=== PATIENT | female | born 1975 | race Caucasian/White ===

== ENCOUNTER 2020-12-06 07:19 | Outpatient (CLI) | payer OTHER, BC, SELFPAY ==
--- NOTE | ~2020-12-06 | MM_ITS ---
EXAMINATION: MM screening tiffany BI w denny HISTORY: Screening mammogram TECHNIQUE: Craniocaudal and mediolateral oblique 3-D tomosynthesis images were obtained and synthetic 2-D images were generated. Bilateral rotated lateral cc views. ..........CAD analysis was submitted and interpreted. COMPARISON: 07/11/2019, 03/15/2018 bilateral digital screening mammogram examinations 02/04/2015 diagnostic left digital mammogram 01/02/2015 bilateral diagnostic mammography and complete bilateral breast ultrasound 12/26/2014 bilateral digital screening mammogram BREAST PARENCHYMAL COMPOSITION: There are scattered areas of fibroglandular density. FINDINGS: History of bilateral prior benign breast biopsies. Possible new approximately 7-8 mm mass in central right breast (MLO Tomosynthesis image 37/83. 11.4 mm partially circumscribed mass with adjacent biopsy marker is noted upper outer left breast (ML O Tomosynthesis image 19/85). Possible partially circumscribed 5 mm mass posteriorly in the lower outer left breast (MLO Tomosynthe sis image 17/85). Bilateral diagnostic mammography and breast ultrasound examination are recommended. IMPRESSION: 1. Bilateral breast masses 2. Bilateral diagnostic mammography and bilateral breast ultrasound examination are recommended. BI-RADS Category 0: Incomplete: Needs additional imaging evaluation. Reviewed, dictated and finalized at location A.
== END 2020-12-06 07:20 | disposition home or self-care (01) ==
LOC: ANHIMG 07:23
PROVIDERS: PCP Emergency Medicine; Visit Provider Obstetrics & Gynecology
DX: Z12.31 Encounter for screening mammogram for malignant neoplasm of breast (principal); R92.8 Other abnormal and inconclusive findings on diagnostic imaging of breast
CPT/HCPCS: 77063; 77067

== ENCOUNTER 2020-12-30 12:13 | Outpatient (CLI) | payer OTHER, BC, SELFPAY ==
--- NOTE | ~2020-12-30 | MMUS_ITS ---
EXAMINATION: MM diagnostic mammo BI, US breast BI limited HISTORY: Bilateral breast masses on screening mammogram TECHNIQUE: Additional 3-D tomosynthesis images of the breasts were performed and synthetic 2-D images were generated. CAD analysis was submitted and interpreted. High resolution limited bilateral breast ultrasound was performed. COMPARISON: 12/06/2020, 07/11/2019, 03/15/2018, 02/04/2015, 01/02/2015 BREAST PARENCHYMAL COMPOSITION: There are scattered areas of fibroglandular density. FINDINGS: MAMMOGRAPHIC FINDINGS: Left breast: There is a stable mass with biopsy change in the posterior third of the breasts at the 3 :00 location 6 cm from the nipple. There is a 5 mm oval, obscured, low density mass in the middle thi rd of the lower breast 6 cm from the nipple. Right breast: An asymmetry is present in the middle third of the slightly inner breast at the 3:00 lo cation 4 cm from the nipple on the craniocaudal view. ULTRASOUND: Left breast: There is an 11 mm x 6 mm oval, circumscribed, parallel, hypoechoic mass at the 3:00 loca tion 4 cm from the nipple which previously measured up to 1.5 cm and has undergone biopsy. No definit e sonographic correlate is identified for the low density mass seen in the middle third of the breast s. Right breast: There is a 4 mm round, circumscribed, anechoic mass with no posterior features or inter nal vascularity projecting behind the nipple. IMPRESSION: 1. Probably benign bilateral breast masses. 2. Recommend 6 month follow-up bilateral diagnostic mammogram and ultrasound. BI-RADS category 3, probably benign findings. Reviewed, dictated and finalized at location A. IMPRESSION: 1. Probably benign bilateral breast masses. 2. Recommend 6 month follow-up bilateral diagnostic mammogram and ultrasound. BI-RADS category 3, probably benign findings.
== END 2020-12-30 12:14 | disposition home or self-care (01) ==
LOC: ANHIMG 12:14
PROVIDERS: PCP Emergency Medicine; Visit Provider Obstetrics & Gynecology
DX: N63.23 Unspecified lump in the left breast, lower outer quadrant (principal); N63.14 Unspecified lump in the right breast, lower inner quadrant
CPT/HCPCS: 76642; 77066

== ENCOUNTER 2021-08-11 11:13 | Outpatient (CLI) | payer OTHER, BC, SELFPAY ==
--- NOTE | ~2021-08-11 | MMUS_ITS ---
EXAMINATION: MM diagnostic tiffany BI w denny, US breast BI limited HISTORY: Six-month follow-up for probably benign bilateral breast masses TECHNIQUE: Craniocaudal, mediolateral, and mediolateral oblique 3-D tomosynthesis images of the dulce ts were performed and synthetic 2-D images were generated. CAD analysis was submitted and interpreted . High resolution limited bilateral breast ultrasound was performed. COMPARISON: 12/30/2020, 12/06/2020, 07/11/2019, 03/15/2018 BREAST PARENCHYMAL COMPOSITION: There are scattered areas of fibroglandular density. FINDINGS: MAMMOGRAPHIC FINDINGS: Left breast: There is a stable 6 mm oval, obscured, low density mass middle third of the lower-outer breast 6 cm from the nipple. Right breast: A stable asymmetry is present in the middle third of inner breast on the craniocaudal v iew 5 cm from the nipple. ULTRASOUND: Left breast: There is a stable 11 mm x 6 mm oval, circumscribed, parallel, hypoechoic mass at the 3:0 0 location 1 cm from the nipple likely reflecting the previously biopsied mass. No sonographic correl ate is identified for the low density mass of the outer breast. Right breast: There is a questionable anechoic mass at the 2:00 location near the nipple. IMPRESSION: 1. Probably benign bilateral breast masses. 2. Recommend 6 month follow-up bilateral diagnostic mammogram with ultrasound if necessary. BI-RADS category 3, probably benign findings. Reviewed, dictated and finalized at location A. Y EDITOR IMPRESSION: 1. Probably benign bilateral breast masses. 2. Recommend 6 month follow-up bilateral diagnostic mammogram with ultrasound i f necessary. BI-RADS category 3, probably benign findings.
--- NOTE | ~2021-08-11 | XR_ITS ---
XR sacrum coccyx min 2V 08/11/2021 12:59 Indication: Sacrococcygeal disorder. Procedure: 3 views of the sacrum/coccyx Comparison: No prior studies for comparison. Findings: No fracture, subluxation or dislocation. Sacral foramen are symmetric. Sacroiliac joints ar e symmetric. There is mild dextrocurvature of the lumbar spine. Impression: 1: No significant abnormality of the sacrum/coccyx. Reviewed, dictated and finalized at location A. GER STRATEGIC ALLIANCES Impression: 1: No significant abnormality of the sacrum/coccyx.
== END 2021-08-11 11:14 | disposition home or self-care (01) ==
PROVIDERS: PCP Emergency Medicine; Visit Provider Obstetrics & Gynecology
DX: M53.3 Sacrococcygeal disorders, not elsewhere classified (principal); R92.8 Other abnormal and inconclusive findings on diagnostic imaging of breast
CPT/HCPCS: 72220; 76642; 77062; 77066; G0279

== ENCOUNTER 2022-02-11 11:10 | Outpatient (CLI) | payer OTHER, BC, SELFPAY ==
--- NOTE | ~2022-02-11 | MMUS_ITS ---
EXAMINATION: MM diagnostic tiffany BI w denny, US breast BI limited HISTORY: Six-month follow-up of probably benign breast masses TECHNIQUE: ML, MLO and CC 3-D tomosynthesis images of both breasts were performed and synthetic 2-D i mages were generated. CAD analysis was submitted and interpreted. High resolution upper inner and low er inner right and upper outer and lower-outer left breast ultrasound was performed. COMPARISON: 08/11/2021 bilateral diagnostic mammography and bilateral Limited breast ultrasound BREAST PARENCHYMAL COMPOSITION: There are scattered areas of fibroglandular density. FINDINGS: MAMMOGRAPHIC FINDINGS: Approximately 5 mm asymmetric opacity is noted at mid depth in the inner right breast on craniocaudal view, apparently in the mid right breast roughly 3:00. Approximately 6.8 x 13 mm opacity is noted posteriorly in the lower outer left breast, associated wit h a biopsy marker; history of prior benign bilateral breast biopsies. Also in the posterior lower outer left breast is an approximately 3.9 x 5.9 mm circumscribed low-dens ity opacity. ULTRASOUND: Right breast: 3.3 x 2.8 x 5 mm mildly irregular hypoechoic lesion with no posterior features. Ultrasound-guided asp iration attempt is recommended, with biopsy if unsuccessful. Left breast: 3:00 6 cm from nipple: Parallel circumscribed 5.9 x 6 x 11 mm hypoechoic solid lesion, corresponding to previously reportedly benign biopsy lesion. 4:00 4 cm from nipple: Parallel circumscribed 5.1 x 2.5 x 5 mm sonolucency, consistent with cyst. IMPRESSION: 1. Mildly irregular hypoechoic up to 5 mm lesion of right breast at 2:00 3 cm from nipple 2. Ultrasound-guided aspiration attempt of right breast 2:00 lesion 3 cm from nipple is recommended, with biopsy if this does not resolve with aspiration BI-RADS category 4, suspicious findings. Reviewed, dictated and finalized at location A. IMPRESSION: 1. Mildly irregular hypoechoic up to 5 mm lesion of right breast at 2:00 3 cm f rom nipple 2. Ultrasound-guided aspiration attempt of right breast 2:00 lesion 3 cm from n ipple is recommended, with biopsy if this does not resolve with aspiration BI-RADS category 4, suspicious findings.
== END 2022-02-11 11:11 | disposition home or self-care (01) ==
LOC: ANHIMG 11:12
PROVIDERS: PCP Emergency Medicine; Visit Provider Obstetrics & Gynecology
DX: N63.10 Unspecified lump in the right breast, unspecified quadrant (principal); N63.20 Unspecified lump in the left breast, unspecified quadrant; R92.8 Other abnormal and inconclusive findings on diagnostic imaging of breast
CPT/HCPCS: 76642; 77062; 77066; G0279

== ENCOUNTER 2023-06-23 06:58 | Outpatient (CLI) | payer OTHER, BC, SELFPAY ==
[2023-06-23 07:58] LABS: Appearance Urine Clear (Clear); Bacteria Urine None Seen /hpf; Bilirubin Urine Negative (Negative); Blood Urine 1+ (Negative); Color Urine Yellow (Yellow); Glucose Urine UA 3+ mg/dL (Negative); Ketones Urine Negative (Negative); Leukocyte Esterase Ur 1+ LEU/UL (Negative); Nitrate Urine Negative (Negative); Non Pathogenic Casts 0-2; Protein Urine Negative (Negative); RBC Urine 0-2 /hpf (0-2); Squamous Epithelial Cell Urine Occasional /hpf (Few); Urobilinogen Urine 0.2 mg/dL (<2.0)
[2023-06-23 08:01] LABS: Add Urine Microscopic? YES
== END 2023-06-23 06:59 | disposition home or self-care (01) ==
PROVIDERS: PCP Internal Medicine; Visit Provider Internal Medicine
DX: R39.9 Unspecified symptoms and signs involving the genitourinary system (principal)
CPT/HCPCS: 81001; 87086; 87088

== ENCOUNTER → 2023-06-28 11:13 | Outpatient (CLI) | payer OTHER, BC, SELFPAY ==
--- NOTE | ~2023-06-28 | US_ITS ---
Pelvic ultrasound. Clinical History: Other signs/symptoms of the tract. History of UTI. Technique: Realtime transabdominal scanning of the pelvis was performed. Color flow Doppler and Doppl er spectral analysis were performed. Findings: The uterus is anteverted, and measures 7.6 x 3.2 x 4.1 cm. The endometrial stripe has a th ickness of 4 mm. No focal mass is identified. The right ovary measures 1.4 x 1.0 x 1.5 cm. No significant right ovarian or adnexal mass is seen. The left ovary measures 1.2 x 1.4 x 1.2 cm. No significant left ovarian or adnexal mass is seen. Vascular flow probably present in both ovaries on Doppler spectral analysis. There is no evidence of free fluid in the cul de sac. Impression: Unremarkable pelvic ultrasound. Reviewed, dictated and finalized at [facility]. INUITY READER Impression: Unremarkable pelvic ultrasound.
== END ==
PROVIDERS: PCP Internal Medicine; Visit Provider Internal Medicine
DX: R39.89 Other symptoms and signs involving the genitourinary system (principal)
CPT/HCPCS: 76856

== ENCOUNTER 2023-07-08 16:05 | Emergency (ER) | payer OTHER, BC, SELFPAY ==
[2023-07-08 16:18] VITALS: BP 121/83; PULSE 114; RESP 16; TEMP 36.5; O2SAT 99
--- NOTE | 2023-07-08 16:40 | ED.FEMALEGU ---
HPI - Female Genitourinary General Chief complaint: Urogenital-Female Stated complaint: Uti symptoms Time Seen by Provider: 07/08/23 16:26 Source: patient, RN notes reviewed and old records reviewed Mode of arrival: ambulatory Limitations: no limitations History of Present Illness HPI Narrative: Patient presents today complaining of suprapubic pressure since yesterday. At the beginning of June she was diagnosed with a UTI by her PCP and placed on Cipro. States symptoms do not improve and she was referred to Urology after she had a negative pelvic ultrasound. She was then placed on a course of Bactrim, which she states helped for short period of time, before symptoms returned. She called her urologist office today, but they could not get her in and recommended that she come to urgent care. Denies dysuria. Review of her chart shows 1+ blood in many of her urine samples. Related Data Home Medications Medication Instructions Recorded Confirmed cholecalciferol (vitamin D3) 50 50 mcg PO DAILY 10/11/22 07/08/23 mcg (2,000 unit) capsule dapagliflozin propaned 10 1 tablet PO DAILY 07/08/23 07/08/23 mg-metformin ER 500 mg tablet, ext rel 24hr (Xigduo XR) semaglutide 14 mg tablet (Rybelsus) 14 mg PO DAILY 07/08/23 07/08/23 Allergies Allergy/AdvReac Type Severity Reaction Status Date / Time No Known Allergies Allergy Unknown Verified 07/08/23 16:12 Review of Systems Review of Systems: CONSTITUTIONAL: Denies body aches, fever, chills, or sweats. EYES: Denies visual changes, redness, or discharge. ENT: Denies rhinorrhea, congestion, sore throat, or otalgia. CARDIOVASCULAR: Denies chest pain, palpitations, or edema. RESPIRATORY: Denies cough or dyspnea. GASTROINTESTINAL: Denies nausea, vomiting, or diarrhea.+ lower abdominal pressure GENITOURINARY: Denies dysuria or hematuria. SKIN: Denies rash, itching, or wounds. MUSCULOSKELETAL: Denies back pain, joint pain, or myalgia. NEUROLOGIC: Denies headache, numbness, tingling, or weakness. PSYCH: Denies depression or anxiety. FOR[facility]LY [facility], [facility] Past Medical History Medical History BMI 30.0-30.9,adult BMI 31.0-31.9,adult BMI 32.0-32.9,adult Colon cancer screening Encounter for preventive health examination Encounter for routine adult health examination without abnormal findings Encounter to establish care Fatigue HLD (hyperlipidemia) Midline cystocele Other specified irregular menstruation Rectocele Vaginal delivery x4 Venous insufficiency Surgical History Surgical History History of breast biopsy Family History Family History Grandparent Cerebrovascular accident Acute myocardial infarction Family history of coronary artery disease Diabetes mellitus Father Hypertension Family history of elevated blood lipids Patient's father is in good health Mother Hypertension Patient's mother is in good health Social History Social History Social History: Patient drinks 2 cups of caffeine daily. Smoking status: Never smoker Second hand tobacco smoke exposure: No Alcohol intake: never Substance use: never Substance use type: does not use Lack of Transportation: No Lack of Food: Never True Current Housing: I Have Housing Concerned About Future Housing: No Difficulty Paying Gas/Electric Bills: No Difficulty Paying for Meds: No Currently Unemployed: No Education: Master's Degree or Higher Living arrangements: with family Additional living arrangements comments: Occupation/Education: unemployed Gender identity (if verbalized by the patient): Female Sexual Orientation (if Verbalized by the Patient): Straight or Heterosexual Comments At time of signature, I have reviewed and agree
== END 2023-07-08 16:51 | disposition home or self-care (01) ==
PROVIDERS: Emergency Provider Nurse Practitioner; PCP Internal Medicine
DX: R10.30 Lower abdominal pain, unspecified (principal); E78.5 Hyperlipidemia, unspecified
CPT/HCPCS: 81003; 87086; 99213; G0463

== ENCOUNTER 2024-10-27 09:50 | Outpatient (CLI) | payer OTHER, BC, SELFPAY ==
--- NOTE | ~2024-10-27 | US_ITS ---
Abdominal Sonogram: Real-time sonographic imaging of the abdomen was performed. Clinical History: Abnormal findings of blood chemistry Findings: The liver appears normal with no evidence of bile duct dilatation. There is a 4.0 x 5.1 x 5.2 cm hyperechoic right hepatic lobe mass. There is an additional 1.8 x 1.8 x 1.9 cm hyperechoic mas s at the anterior right hepatic lobe. Main portal vein demonstrates normal direction of flow. The spl een is normal in size without evidence of focal lesion. The gallbladder is well distended, and appea rs normal with no evidence of gallstone or wall thickening. The common bile duct measures 3 mm. The visualized pancreas, aorta, and IVC are unremarkable. The right kidney measures 10.7 cm in length an d the left kidney measures 10.8 cm. There is no hydronephrosis or renal calculus. Impression: At least 2 hyperechoic hepatic masses, measuring 5.2 cm and 1.9 cm in diameter respectively. Pre and postcontrast MR recommended to assess for hemangiomas versus other lesions. Reviewed, dictated and finalized at [facility]. Impression: At least 2 hyperechoic hepatic masses, measuring 5.2 cm and 1.9 cm in diameter respectively. Pre and postcontrast MR recommended to assess for hemangiomas susan pj other lesions.
== END 2024-10-27 09:51 | disposition home or self-care (01) ==
LOC: MICIMG 09:52
PROVIDERS: PCP Internal Medicine; Visit Provider Internal Medicine
DX: R79.89 Other specified abnormal findings of blood chemistry (principal)
CPT/HCPCS: 76700

== ENCOUNTER 2024-11-02 08:00 | Emergency (ER) | payer OTHER, BC, SELFPAY ==
--- NOTE | 2024-11-02 08:10 | ED.URI ---
HPI - URI/Sore Throat General Chief Complaint: Upper Respiratory Infection Stated Complaint: SORE THROAT/FEVER/BODY ACHES/CHILLS/DIARRHEA Time Seen by Provider: 11/02/24 08:00 Source: patient Mode of arrival: ambulatory Limitations: no limitations History of Present Illness HPI Narrative: Patient is a 49-year-old female presents with sore throat, cough, fever, body aches, chills, swollen lymphnodes, congestion for 3 days. Highest fever of 101.7. Diarrhea last night. Denies any congestion, nausea, vomiting. Denies any known exposures. Related Data Home Medications ?Medication ?Instructions ?Recorded ?Confirmed ?Last Taken ?Type cholecalciferol (vitamin D3) 50 100 mcg PO DAILY 12/02/23 11/02/24 Unknown History mcg (2,000 unit) capsule ascorbic acid (vitamin C) 500 mg 50 mg PO DAILY 04/18/24 11/02/24 Unknown History capsule Allergies Allergy/AdvReac Type Severity Reaction Status Date / Time No Known Allergies Allergy Unknown Verified 11/02/24 08:12 Review of Systems Review of Systems: All systems reviewed & are unremarkable except as noted in HPI and below Constitutional: Constitutional: Reports chills, Denies fatigue, Reports fever(s), Reports headache(s), Denies malaise and Denies weakness Eyes: Eyes: Denies blurry vision, Denies itchy eyes and Denies loss of vision ENT: Denies otalgia, Reports headache(s), Reports nasal congestion, Denies sinus pain and Reports sore throat Cardiovascular: Cardiovascular: Denies chest pain, Denies irregular heart rhythm and Denies dyspnea Respiratory: Respiratory: Reports cough and Denies dyspnea Gastrointestinal: Gastrointestinal: Denies abdominal pain, Reports diarrhea, Denies nausea and Denies vomiting Musculoskeletal: Musculoskeletal: Denies back pain, Reports myalgias and Denies arthralgias Integumentary/Breasts: Skin/Breast: Denies pruritus and Denies rash Neurologic: Reports headache(s), Denies loss of vision and Denies weakness Psychiatric: Psychiatric: Reports no additional psychiatric complaints Endocrine: Endocrine: Denies fatigue Allergic/Immunologic: Allergic/Immunologic: Denies itchy eyes PMFSH Past Medical History Medical History BMI 28.0-28.9,adult BMI 31.0-31.9,adult Venous insufficiency Encounter for routine adult health examination without abnormal findings Encounter for preventive health examination BMI 30.0-30.9,adult Colon cancer screening Encounter to establish care BMI 32.0-32.9,adult Rectocele Other specified irregular menstruation Midline cystocele Fatigue Vaginal delivery x4 HLD (hyperlipidemia) Surgical History Surgical History History of breast biopsy Family History Family History Grandparent Cerebrovascular accident Acute myocardial infarction Family history of coronary artery disease Diabetes mellitus Father Hypertension Family history of elevated blood lipids Patient's father is in good health Mother Hypertension Patient's mother is in good health Social History Social History Social History: Patient drinks 2 cups of caffeine daily. Smoking status: Never smoker Second hand tobacco smoke exposure: No Alcohol intake: never Substance use: never Substance use type: does not use Lack of Transportation: No Lack of Food: Never True Current Housing: I Have Housing Concerned About Future Housing: No Difficulty Paying Gas/Electric Bills: No Difficulty Paying for Meds: No Currently Unemployed: No Education: Master's Degree or Higher Living arrangements: with family Additional living arrangements comments: Occupation/Education: unemployed Gender identity (if verbalized by the patient): Female Sexual Orientation (if Verbalized by the Patient): Straight or Heterosexual Comments At time of signature, agree with nursing past medical, surgical, social and family history. There is no relevant family history pertinent to the presenting complaint. Exam Const: General: cooperative, healthy appearing, comfortable, no acute distress and well nourished Nutritional Appearance: well nourished Orientation/consciousness: patient oriented x3 Limitations: no limitations HENMT: Head: normal to inspection, normocephalic and atraumatic Ears: hearing grossly normal bilaterally, external ears normal, TM's normal bilaterally, EAC's normal and no periauricular adenopathy Face/Nose/Sinus: Normal external nose present, Abnormal mucous membranes and turbinates present erythematous bilateral and diffuse, normal facial exam, sinuses nontender and face symmetric Face and sinus: normal facial exam, sinuses nontender and face symmetric Mouth: Yes Normal oral and palatal mucosa present, Yes lip normal, Yes tongue normal, Yes Normal salivary glands and ducts present, Yes oropharynx normal and Yes moist mucous membranes Teeth and gingiva: dentition normal Throat: uvula midline, abnormal tonsil bilateral erythema and posterior oropharynx abnormal erythema Eyes: General: appearance normal, both eyes and all related structures Alignment and Position: alignment normal and position normal Periorbital: periorbital findings normal Eyelids: eyelids normal Pupils: Equal, round and reactive pupils present Neck: Neck: normal visual inspection, full ROM, no lymphadenopathy and supple Chest: Chest palpation & inspection: normal inspection of the chest and normal palpation of entire chest wall Resp: Effort & Inspection: normal respiratory effort and able to speak in complete sentences Auscultation: clear to auscultation bilaterally, no crackles, no rales, no rhonchi and no wheezes Cardio: Rate: tachycardic Rhythm: regular rhythm Heart sounds: S1 normal heart sound present and S2 normal heart sound present GI: Inspection: normal to inspection Skin: General skin exam: normal color and no rashes or lesions noted Neuro: General: patient oriented x3 and moves all extremities Cranial nerves: Yes Equal, round and reactive pupils present Speech: normal speech Gait exam (Neuro): Normal gait present Extrem: General: normal to inspection, full ROM and no edema Psych: Appearance: grossly normal and well kempt Mental Status: mental status grossly normal Speech and movement: Normal speech and movement present Affect: normal affect Attitude: cooperative Thought process: Normal thought process present Course Course Emergency Course: Discharge instructions reviewed with patient, as well as provided in writing per nursing staff. The instructions also include specific and strict return/GO TO THE ER as well as f/u information. All questions have been answered, and the patient deny any further questions with discharge and discharge plan. Portions of this record may have been created with voice recognition software Level of Care: Express Care Visit Vital Signs Vital signs: Vital Signs Temperature 36.4 C L 11/02/24 08:18 Pulse Rate 117 H 11/02/24 08:18 Respiratory Rate 16 11/02/24 08:18 Blood Pressure 128/89 11/02/24 08:18 Pulse Oximetry 98 11/02/24 08:18 Temperature 36.4 C L 11/02/24 08:18 Pulse Rate 117 H 11/02/24 08:18 Respiratory Rate 16 11/02/24 08:18 Blood Pressure 128/89 11/02/24 08:18 Pulse Oximetry 98 11/02/24 08:18 Reviewed MDM - URI/Sore Throat MDM Narrative Medical decision making narrative: Pt well hydrated appearing, in no respiratory distress, hemodynamically stable. Recommend supportive care. The patient is stable at time of discharge the clinical impression was discussed and the patient was given the opportunity to ask questions, which were addressed as completely as possible given the information available at present. Anticipatory guidance and return to care precautions were discussed and the importance of primary care follow-up was stressed and encouraged. The patient voiced understanding of the plan, indications to return, and the need for follow-up. Differential diagnosis considered: Bronchitis, Hein virus, strep pharyngitis, allergic rhinitis, upper respiratory tract infection, sinusitis, rhinosinusitis, nasopharyngitis. viral pharyngitis, otitis media, otitis externa, otitis effusion, foreign body, cerumen impaction, viral syndrome, and influenza.? Exam findings show no acute concerns or changes; patient is non-toxic appearing and is in no distress.? Patient is appropriate for outpatient treatment and follow-up.? Medical Records Attestation: I reviewed the patient's medical records. Lab Data Attestation: I reviewed the patient's lab results. Labs: Lab Results 11/02/24 Range/Units 08:26 POC Influenza A Ag Negative (Negative) POC Influenza B Ag Negative (Negative) POC SARS CoV-2 Ag Negative (Negative) POC Grp A Strep Screen Positive (Negative) Discharge Plan Discharge Clinical Impression: Strep throat Patient Disposition: Home, Self-Care Condition: Stable Instructions: Strep Throat (ED) Additional Instructions: Your rapid strep swab was positive today at [facility]. After 24 hours on antibiotics throw tooth brush away and start using a new one. Wash your sheets and cup/water bottle that is used daily. Do not share drinks. Take Motrin alternating with Tylenol for pain and fever alternating every 4 hours. Increase fluids, avoid caffeine. Other symptomatic treatments include: -Antihistamine medication such as Benadryl at night and Zyrtec/Claritin/Jenny during the day can help improve symptoms. -Use Flonase twice a day for 5 days then daily to help reduce the inflammation and dry up your sinuses. -You can also use Sudafed or Mucinex. Be sure to drink plenty of water with these medications at least 8 ounces with every dose and it is important to drink 8 to 10 glasses of water per day. Water is a natural decongestant -Eat and drink things that are easy to swallow, like tea or soup, or popsicles. -Oral rinses such as: Salt water gargles and/or may use topical anesthetic (eg. Chloraseptic spray) or lozenges to relieve dryness or throat pain). -Frequent hand washing or hand osteologist is one of the best ways to prevent spread of infection. -Using a vaporizer or humidifier at night will also help thin secretions and help with coughing up phlegm. -Follow up with primary care provider in 3-5 days if condition is not improving - For new or worsening symptoms go directly to the nearest ER Patient Language: Kinyarwanda Prescriptions: New amoxicillin 500 mg capsule 500 mg PO BID 10 Days Qty: 20 0RF No Action cholecalciferol (vitamin D3) 50 mcg (2,000 unit) capsule 100 mcg PO DAILY ascorbic acid (vitamin C) 500 mg capsule 50 mg PO DAILY atorvastatin 80 mg tablet See Rx Instructions .ROUTE .COMPLEX Qty: 90 3RF Dose Instruction: TAKE 1 TABLET DAILY Rx Instructions: TAKE 1 TABLET DAILY Rybelsus 14 mg tablet 14 mg PO DAILY Qty: 90 2RF Xigduo XR 10-500 mg tablet, IR - ER, biphasic 24hr 1 tablet PO DAILY Qty: 90 2RF Follow-up/Referrals: Jag Meyer MD [Primary Care Provider] - 3 Days Stand Alone Forms: Work/School Release IP Time of Disposition: 08:34
[2024-11-02 08:18] VITALS: BP 128/89; PULSE 117; RESP 16; TEMP 36.4; O2SAT 98
[2024-11-02 08:27] LABS: EDCOVIDSCREEN Negative (Negative); EDINFLUASCREEN Negative (Negative); EDINFLUBSCREEN Negative (Negative); EDSTREPNEGPOS1 Positive (Negative)
== END 2024-11-02 08:40 | disposition home or self-care (01) ==
PROVIDERS: Emergency Provider Nurse Practitioner Family; PCP Internal Medicine
DX: J02.0 Streptococcal pharyngitis (principal); Z20.822 Contact with and (suspected) exposure to COVID-19
CPT/HCPCS: 87426; 87804; 87880; 99213; G0463

== ENCOUNTER 2024-11-07 13:09 | Outpatient (CLI) | payer OTHER, BC, SELFPAY ==
--- NOTE | ~2024-11-07 | MR_ITS ---
EXAMINATION: MR abdomen wo/w con DATE: 11/07/2024 14:08 INDICATION: Liver mass TECHNIQUE: Magnetic resonance imaging (MRI) of the abdomen was performed without and with 18 mL Multi brayan intravenous contrast. Sequences included coronal T2-weighted SS-FSE, coronal and axial FS 2D-F IESTA, axial STIR FSE, axial T2-weighted SS-FSE, axial T2-weighted FS SS-FSE, axial diffusion-weighte d SE, axial dual-echo T1-weighted FSPGR, and axial and coronal T1-weighted LAVA. Postcontrast axial T 1-weighted LAVA images were obtained in a time course. Postcontrast coronal T1-weighted LAVA images w ere obtained. COMPARISON: Ultrasound dated 11/06/2024 FINDINGS: Heart size is normal. Small sliding-type hiatal hernia. No pericardial or pleural effusion. There are couple cavernous hemangiomas the right hepatic lobe characterized by T2 hyperintensity with lobular margins and peripheral discontiguous puddling of contrast which progressively fills in on the 10 eddi haresh of post contrast imaging. The larger measures 5.7 x 3.5 cm and the smaller measuring 1.6 cm. Gall bladder, pancreas, spleen, bilateral adrenal glands and kidneys are normal. Bowels are unremarkable w ith no obstruction. No pathologically enlarged abdominal or upper pelvic lymphadenopathy. Mild upper lumbar dextrocurvature with mild spondylosis. Normal bone marrow signal throughout. IMPRESSION: 1. 5.7 cm and 1.6 cm cavernous hemangiomas the right hepatic lobe corresponding to lesions of concern on prior ultrasound. Reviewed, dictated and finalized at location A.
== END 2024-11-07 13:10 | disposition home or self-care (01) ==
LOC: MICIMG 13:10
PROVIDERS: PCP Internal Medicine; Visit Provider Internal Medicine
DX: D18.09 Hemangioma of other sites (principal); R16.0 Hepatomegaly, not elsewhere classified
CPT/HCPCS: 74183; A9577

== ENCOUNTER 2024-11-25 15:41 | Emergency (ER) | payer OTHER, BC, SELFPAY ==
[2024-11-25 16:02] VITALS: BP 123/87; PULSE 72; RESP 16; TEMP 36.6; O2SAT 100
--- NOTE | 2024-11-25 16:08 | ED_ITS ---
HPI - URI/Sore Throat General Chief Complaint: Upper Respiratory Infection Stated Complaint: SORE THROAT Time Seen by Provider: 11/25/24 16:08 Source: patient Mode of arrival: ambulatory Limitations: no limitations History of Present Illness HPI Narrative: 49-year-old female presents with complaint of sore throat for past 2 days. Afebrile. No other symptoms. Reports strep throat a few weeks ago. ?Concerned it may have came back. ? All systems reviewed and negative except as noted above. Related Data Home Medications ?Medication ?Instructions ?Recorded ?Confirmed ?Last Taken ?Type cholecalciferol (vitamin D3) 50 100 mcg PO DAILY 12/02/23 11/25/24 Unknown History mcg (2,000 unit) capsule ascorbic acid (vitamin C) 500 mg 50 mg PO DAILY 04/18/24 11/25/24 Unknown History capsule Allergies Allergy/AdvReac Type Severity Reaction Status Date / Time No Known Allergies Allergy Unknown Verified 11/25/24 15:58 Review of Systems Review of Systems: CONSTITUTIONAL: Denies fever, chills, or sweats. EYES: Denies visual changes, redness, or discharge. ENT: Denies rhinorrhea, congestion. Reports sore throat. Denies otalgia. CARDIOVASCULAR: Denies chest pain, palpitations, or edema. RESPIRATORY: Denies cough or dyspnea. GASTROINTESTINAL: Denies abdominal pain, nausea, vomiting, or diarrhea. GENITOURINARY: Denies dysuria or hematuria. SKIN: Denies rash or itching. MUSCULOSKELETAL: Denies back pain, joint pain, or myalgia. NEUROLOGIC: Denies headache, numbness, or weakness. PSYCHIATRIC: Denies anxiety or depression. All other systems reviewed are negative, except as documented in HPI. [facility] Past Medical History Medical History BMI 28.0-28.9,adult BMI 31.0-31.9,adult Venous insufficiency Encounter for routine adult health examination without abnormal findings Encounter for preventive health examination BMI 30.0-30.9,adult Colon cancer screening Encounter to establish care BMI 32.0-32.9,adult Rectocele Other specified irregular menstruation Midline cystocele Fatigue Vaginal delivery x4 HLD (hyperlipidemia) Surgical History Surgical History History of breast biopsy Family History Family History Grandparent Cerebrovascular accident Acute myocardial infarction Family history of coronary artery disease Diabetes mellitus Father Hypertension Family history of elevated blood lipids Patient's father is in good health Mother Hypertension Patient's mother is in good health Social History Social History Social History: Patient drinks 2 cups of caffeine daily. Smoking status: Never smoker Second hand tobacco smoke exposure: No Alcohol intake: never Substance use: never Substance use type: does not use Lack of Transportation: No Lack of Food: Never True Current Housing: I Have Housing Concerned About Future Housing: No Difficulty Paying Gas/Electric Bills: No Difficulty Paying for Meds: No Currently Unemployed: No Education: Master's Degree or Higher Living arrangements: with family Additional living arrangements comments: Occupation/Education: unemployed Gender identity (if verbalized by the patient): Female Sexual Orientation (if Verbalized by the Patient): Straight or Heterosexual Comments At time of signature, agree with nursing past medical, surgical, social and family history. There is no relevant family history pertinent to the presenting complaint. Exam Narrative: GENERAL: This is a well-nourished, well-developed patient, in no apparent distress. HEAD: normocephalic, atraumatic. EYES: PERRL. Sclera clear/white. Vision is grossly intact. EARS: External ears normal, auditory canals clear and without drainage, TMs normal without perforation. Hearing grossly intact. NOSE: External nose normal with no obvious nasal discharge, nares without redness, no rhinorrhea. THROAT: Mucous membranes moist, posterior pharynx clear. NECK: Neck supple, non-tender without lymphadenopathy, masses or thyromegaly. CARDIOVASCULAR: Regular rate and rhythm without murmurs, gallops, or rubs. RESPIRATORY: Clear to auscultation. Breath sounds equal bilaterally. No wheezes, rales, or rhonchi. SKIN: warm, Dry, intact with no suspicious lesions or rash, good texture and turgor. NEURO: awake, alert, and oriented to person, place and time. There were no obvious focal neurologic abnormalities. EXTREMITIES: No joint tenderness, effusion, or edema noted. Course Course Level of Care: Express Care Visit Vital Signs Vital signs: Vital Signs Temperature 36.6 C 11/25/24 16:02 Pulse Rate 72 11/25/24 16:02 Respiratory Rate 16 11/25/24 16:02 Blood Pressure 123/87 11/25/24 16:02 Pulse Oximetry 100 11/25/24 16:02 Temperature 36.6 C 11/25/24 16:02 Pulse Rate 72 11/25/24 16:02 Respiratory Rate 16 11/25/24 16:02 Blood Pressure 123/87 11/25/24 16:02 Pulse Oximetry 100 11/25/24 16:02 Reviewed MDM - URI/Sore Throat MDM Narrative Medical decision making narrative: Negative rapid strep. Strep culture ordered. Recommend patient take [id number] medications to treat viral symptoms. Patient is well- appearing, nontoxic. Please be advised this is a medical document. It is intended for [id number] communication. It is written in medical language and may contain unfamiliar abbreviations or verbiage. Medical documents are intended to carry relevant information, facts as evident, and the clinical opinion of the practitioner at the time of the encounter. This report may have been done utilizing a voice recognition system. Attempts have been made to correct errors. However, there may be uncorrected grammatical, spelling, and recognition errors present. The file time of this note does not necessarily represent the time of service. Differential Diagnosis Differential diagnosis: Likely upper respiratory infection, sinusitis, viral infection and pharyngitis Lab Data Labs: Lab Results 11/25/24 Range/Units 16:09 POC Grp A Strep Screen Negative (Negative) Discharge Plan Discharge Clinical Impression: Acute viral pharyngitis Patient Disposition: Home, Self-Care Condition: Stable Instructions: Pharyngitis (ED) Additional Instructions: Your strep test was negative today. A strep culture was ordered and results will take 24-48 hours. If your strep culture is positive we will call you at that time and prescribed an antibiotic. Take Tylenol or ibuprofen every 6-8 hours as needed for pain. If you have postnasal drainage treat with Zyrtec or Claritin. Place cool mist humidifier in bedroom where you sleep. Drink at least 64 oz water a day. See your doctor throat pain is not improving. Patient Language: [place] Prescriptions: No Action cholecalciferol (vitamin D3) 50 mcg (2,000 unit) capsule 100 mcg PO DAILY ascorbic acid (vitamin C) 500 mg capsule 50 mg PO DAILY atorvastatin 80 mg tablet See Rx Instructions .ROUTE .COMPLEX Qty: 90 3RF Dose Instruction: TAKE 1 TABLET DAILY Rx Instructions: TAKE 1 TABLET DAILY Rybelsus 14 mg tablet 14 mg PO DAILY Qty: 90 2RF Xigduo XR 10-500 mg tablet, IR - ER, biphasic 24hr 1 tablet PO DAILY Qty: 90 2RF Follow-up/Referrals: Jag Meyer MD [Primary Care Provider] - Time of Disposition: 16:13
[2024-11-25 16:10] LABS: EDSTREPNEGPOS1 Negative (Negative)
== END 2024-11-25 16:17 | disposition home or self-care (01) ==
PROVIDERS: Emergency Provider Nurse Practitioner Family; PCP Internal Medicine
DX: J02.8 Acute pharyngitis due to other specified organisms (principal); E78.5 Hyperlipidemia, unspecified
CPT/HCPCS: 87081; 87880; 99213; G0463

== ENCOUNTER 2025-05-08 02:07 | Day surgery (SDC) | payer OTHER, BC, SELFPAY ==
--- OUTSIDE RECORDS SUMMARY | 2009-12-26 07:30 | XMS_ITS | Continuity of Care Document ---
Author Organization [facility] Address [address] [place] [address] Phone Care Team Providers Care Roofer Gypsum Name Role Phone Schneider OD, Alex Unavailable Unavailable Procedures Procedure Date Eye Exam & Treatment Refraction Frames Deluxe SV Hi Index Sphcyl [place] +/-4d, .12-2d A Anti-reflective Coating Tax - Medical Advance Directives Directive Yes / No Effective Date File Name No Information Encounters Encounter Description Practice Location Reason(s) For Visit Diagnoses Date Provider Providers Copied on Encounter [facility], [address] [place] [address] [address], [place], [place], [id number], [place] tel:[phone] [facility] No Information [phone] 0 Schneider OD Alex. [address] , [address], [place], [address], [place]. tel:[phone] [facility], [address] [place] [address] [address], [place], [place], [id number], [place] tel:[phone] [facility] No Information 6-200 7 [facility] . [address], [address], [place], [place], [id number], [place]. tel:[phone] Consulting Provider: Karolina Brunson, [address] [place] [address], [address]. tel:[phone] Family History Family Member Type Diagnosis Age At Onset No Information Payers Payer name Insurance type Covered alliance party ID Nadine mckenna(s) [facility] [id number] Social History Type Description Quantity Date Captured Comments Sex Female Smoking Status No Information Chief Complaint And Reason For Visit No Information Reason For Referral Reason For Referral No Information History Of Present Illness Encounter Date Complaint History Of Prese nt Illness No Information Functional Status Date Functional Assessmen t No Information Instructions Date Instruction Additional Infor mation No Information Assessments Type Assessment Date No Information Patient Care Teams Name Effective Dates (start - stop) Status Members No Information
[2025-04-25 13:38] VITALS: BMI 29.7
[2025-05-08 10:00] VITALS: BP 129/79; PULSE 96; RESP 18; TEMP 36.3; O2SAT 100; BMI 28.7
[2025-05-08] MEDS: LACTATED RINGERS 1,000 ML 150 ML IV CONT (10:11)
--- NOTE | 2025-05-08 10:48 | WPDANESEPPF ---
Anes - Initial Pre Proc Eval Procedure: Operation Date: 05/08/25 11:00 Proposed Procedures p Screening Colonoscopy - Francis Ordonez MD Date/Time: 05/08/25 10:48 Surgeon: Francis Ordonez MD Pre Op Diagnosis: Screening Patient Data Age: 49 Gender: F Height: 1.78 m Weight: 90.7 kg Last Vital Signs Temp 97.3 F L 05/08/25 10:00 Pulse 96 05/08/25 10:00 Resp 18 05/08/25 10:00 BP 129/79 05/08/25 10:00 Pulse Ox 100 05/08/25 10:00 O2 Del Method Room Air 05/08/25 10:00 Allergies Allergy/AdvReac Type Severity Reaction Status Date / Time No Known Allergies Allergy Unknown Verified 05/08/25 09:59 Home Medications ?Medication ?Instructions ?Recorded ?Confirmed ?Type cholecalciferol (vitamin D3) 50 50 mcg PO DAILY 12/02/23 05/08/25 History mcg (2,000 unit) capsule ascorbic acid (vitamin C) 500 mg 50 mg PO DAILY 04/18/24 05/08/25 History capsule Super Beets 2 gummy BYMOUTH DAILY 12/06/24 05/08/25 History Calcium 600 Vit D 20mcg 1 tablet BYMOUTH DAILY 04/25/25 05/08/25 History atorvastatin 80 mg tablet See Rx Instructions .Route 04/25/25 05/08/25 Rx .COMPLEX #90 tabs dapagliflozin propaned 10 See Rx Instructions .Route 04/25/25 05/08/25 Rx mg-metformin ER 500 mg tablet, ext .COMPLEX #90 tabs rel 24hr (Xigduo XR) ezetimibe 10 mg tablet 5 mg .Route DAILY 04/25/25 05/08/25 History semaglutide 14 mg tablet (Rybelsus) See Rx Instructions .Route 04/25/25 05/08/25 Rx .COMPLEX #90 tabs Laboratory Tests 05/08/25 10:10 POC Capillary Glucose 107 H mg/dl (65-105) Patient hx anesthesia problems: none Family hx anesthesia problems: none Results Review: All pre-operative results and documents have been reviewed as part of the pre-operative evaluation. [facility] Past Medical History Medical History Constipation BMI 28.0-28.9,adult BMI 31.0-31.9,adult Venous insufficiency Encounter for routine adult health examination without abnormal findings Encounter for preventive health examination BMI 30.0-30.9,adult Colon cancer screening Encounter to establish care BMI 32.0-32.9,adult Rectocele Other specified irregular menstruation Midline cystocele Fatigue Vaginal delivery x4 HLD (hyperlipidemia) Surgical History Surgical History History of breast biopsy Family History Family History Grandparent Cerebrovascular accident Acute myocardial infarction Family history of coronary artery disease Diabetes mellitus Father Hypertension Family history of elevated blood lipids Patient's father is in good health Mother Hypertension Patient's mother is in good health Social History Social History Social History: Patient drinks 2 cups of caffeine daily. Smoking status: Never smoker Second hand tobacco smoke exposure: No Alcohol intake: never Substance use: never Substance use type: does not use Lack of Transportation: No Lack of Food: Never True Current Housing: I Have Housing Concerned About Future Housing: No Difficulty Paying Gas/Electric Bills: No Difficulty Paying for Meds: No Currently Unemployed: No Education: Master's Degree or Higher Living arrangements: with family Additional living arrangements comments: Occupation/Education: unemployed Gender identity (if verbalized by the patient): Female Sexual Orientation (if Verbalized by the Patient): Straight or Heterosexual Anes - Eval Final PreProcedure Day of Procedure 05/08/25 10:48 Patient weight: overweight Lungs: normal air movement Airway: Mallampati scale class II Neurological: alert and oriented Last oral intake: >/= 8 hours ASA classification: II Emergent: no Anesthetic plan: proceed Anesthesia type and monitoring: general GIVS and standard monitoring Results Review: All pre-operative results and documents have been reviewed as part of the pre-operative evaluation. Hyperlipidemia, DM fsbs 107, suspect MAYDA (pt to have sleep study next Tuesday), active w cardio/elliptical, no cp or sob. Informed Consent: The patient's anesthetic plan and its attendant risks and benefits were discussed with the patient/family/POA. Questions were solicited and answers provided to the satisfaction of the patient/family/POA.
--- NOTE | 2025-05-08 10:53 | PM.HPGS ---
History of Present Illness History of Present Illness Consent: Risks, benefits, and alternatives have been discussed and questions answered. Patient agrees to proceed with procedure. Chief complaint: Screening Narrative: Jacquie Simpson is a 49 year old female here for first screening colonoscopy Review of Systems Review of Systems: All systems reviewed & are unremarkable except as noted in HPI and below PMFSH Past Medical History Medical History Constipation BMI 28.0-28.9,adult BMI 31.0-31.9,adult Venous insufficiency Encounter for routine adult health examination without abnormal findings Encounter for preventive health examination BMI 30.0-30.9,adult Colon cancer screening Encounter to establish care BMI 32.0-32.9,adult Rectocele Other specified irregular menstruation Midline cystocele Fatigue Vaginal delivery x4 HLD (hyperlipidemia) Surgical History Surgical History History of breast biopsy Family History Family History Grandparent Cerebrovascular accident Acute myocardial infarction Family history of coronary artery disease Diabetes mellitus Father Hypertension Family history of elevated blood lipids Patient's father is in good health Mother Hypertension Patient's mother is in good health Social History Social History Social History: Patient drinks 2 cups of caffeine daily. Smoking status: Never smoker Second hand tobacco smoke exposure: No Alcohol intake: never Substance use: never Substance use type: does not use Lack of Transportation: No Lack of Food: Never True Current Housing: I Have Housing Concerned About Future Housing: No Difficulty Paying Gas/Electric Bills: No Difficulty Paying for Meds: No Currently Unemployed: No Education: Master's Degree or Higher Living arrangements: with family Additional living arrangements comments: Occupation/Education: unemployed Gender identity (if verbalized by the patient): Female Sexual Orientation (if Verbalized by the Patient): Straight or Heterosexual Meds Home Medications and Allergies Home Medications ?Medication ?Instructions ?Recorded ?Confirmed ?Type cholecalciferol (vitamin D3) 50 50 mcg PO DAILY 12/02/23 05/08/25 History mcg (2,000 unit) capsule ascorbic acid (vitamin C) 500 mg 50 mg PO DAILY 04/18/24 05/08/25 History capsule Super Beets 2 gummy BYMOUTH DAILY 12/06/24 05/08/25 History Calcium 600 Vit D 20mcg 1 tablet BYMOUTH DAILY 04/25/25 05/08/25 History atorvastatin 80 mg tablet See Rx Instructions .Route 04/25/25 05/08/25 Rx .COMPLEX #90 tabs dapagliflozin propaned 10 See Rx Instructions .Route 04/25/25 05/08/25 Rx mg-metformin ER 500 mg tablet, ext .COMPLEX #90 tabs rel 24hr (Xigduo XR) ezetimibe 10 mg tablet 5 mg .Route DAILY 04/25/25 05/08/25 History semaglutide 14 mg tablet (Rybelsus) See Rx Instructions .Route 04/25/25 05/08/25 Rx .COMPLEX #90 tabs Allergies Allergy/AdvReac Type Severity Reaction Status Date / Time No Known Allergies Allergy Unknown Verified 05/08/25 09:59 Vital Signs Vital Signs - 24 hr 05/08/25 10:00 Temperature 97.3 F L Pulse Rate 96 Respiratory Rate 18 Blood Pressure 129/79 Pulse Oximetry 100 Oxygen Delivery Room Air Exam Const: General: comfortable and no acute distress HENMT: Face/Nose/Sinus: Normal nares present Eyes: General: appearance normal, both eyes and all related structures Neck: Neck: no JVD Resp: Auscultation: clear to auscultation bilaterally Cardio: Rate: regular rate Rhythm: regular rhythm GI: Inspection: non-distended GI Palp: Yes Soft to palpation Skin: General skin exam: normal color Neuro: Speech: normal speech Extrem: General: normal to inspection Psych: Mental Status: mental status grossly normal Assessment and Plan Assessment and plan (1) Colon cancer screening: Code(s): Z12.11 - Encounter for screening for malignant neoplasm of colon Status: Acute Assessment and Plan: colonoscopy
[2025-05-08 11:05] VITALS: BP 91/61; PULSE 73; RESP 21; O2SAT 99
--- NOTE | 2025-05-08 11:05 | S_PTH ---
PATIENT: Jacquie Simpson LOC: [facility] [place]#:[id number] AGE/SX: 49/F ROOM: RE05/08/[address]: Francis Ordonez MD : 1975 BED: DIS: 05/08/2025 SPEC #: [id number] RECD: 05/08/25 13:15 STATUS: EUGENIE RESultana #: [id number] CHUYITA: 05/08/25 11:[address]: Francis Ordonez DEPT: [facility] Surgical RECD BY: Yvette Hernandez ENTERED: 05/08/25 13:16 SP TYPE: Surgical OTHR DR: Jag Meyer MD Tissues: A - Colon Polypectomy Procedures: Hematoxylin and Eosin Stain Gross and Microscopic Level 4
[2025-05-08 11:15] VITALS: BP 106/67; PULSE 57; RESP 16; O2SAT 100
[2025-05-08 11:25] VITALS: BP 118/74; PULSE 60; RESP 20; O2SAT 100
== END 2025-05-08 11:35 | disposition home or self-care (01) ==
PROVIDERS: PCP Internal Medicine; Referring Provider Nurse Practitioner Family; Visit Provider Internal Medicine Gastroenterology
PROC: 0DJD8ZZ Inspection of Lower Intestinal Tract, Via Natural or Artificial Opening Endoscopic (ICD-10-PCS; CPT 45378; principal; 2025-05-08 11:00)
DX: Z12.11 Encounter for screening for malignant neoplasm of colon (principal); D12.5 Benign neoplasm of sigmoid colon; K64.8 Other hemorrhoids; K57.30 Diverticulosis of large intestine without perforation or abscess without bleeding; E78.5 Hyperlipidemia, unspecified; E11.9 Type 2 diabetes mellitus without complications; R53.83 Other fatigue; I87.2 Venous insufficiency (chronic) (peripheral); Z79.84 Long term (current) use of oral hypoglycemic drugs; Z98.890 Other specified postprocedural states; Z82.49 Family history of ischemic heart disease and other diseases of the circulatory system
CPT/HCPCS: 45385; 82948; 88305; J2704; J7120

== ENCOUNTER 2025-05-13 07:59 | Outpatient (CLI) | payer OTHER, BC, SELFPAY ==
--- OUTSIDE RECORDS SUMMARY | 2025-05-13 08:29 | XMS_ITS | Clinical Summary ---
Author Organization [facility] Address [address] [place] [address] Care Team Providers Care Motivational Speaker Name Role Phone Jag Meyer MD Primary Care Provider [phone] Source Comments [facility],non-[facility] and Associated Physician Practices is amultiple site organization consisting of ambulatory clinics and hospital sitesin [place], [place], [place] and [place]. This disclosure is being madepursuant to the Care Everywhere program and may not contain all information available regarding this patient. Last updated 18.[facility] Allergies No known active allergies Medications * Be aware that medications may not be up to date on this document. Alwaysverify current medications with the patient. PRAVASTATIN SODIUM PO Active Xigduo XR 10-500 MG tablet 08/30/2022 Active ezetimibe (Zetia) 10 MG tablet 08/29/2022 Active OneTouch Verio test strip 06/24/2022 Active Lancets (ONETOUCH DELICA PLUS 33G EXTRA FINE LANCET) 03/30/2022 Active Blood Glucose Monitoring Suppl (OneTouch Verio Flex System) w/Device KIT 03/30/2022 Active atorvastatin (Lipitor) 80 MG tablet 08/22/2022 Active Active Problems Patient Care Coordination No te Formatting of this note migh t be different from the original. Primary Care Provider: Moi Lopez MD [address] [place] [id number] Referring Provider: Israel Mcmanus MD [address] [facility] [facility] [address] [place] [address] No known active problems Immunizations Immunization Administration Dates Next Due INFLUENZA VACCINE, QUADR. (F LUZONE; FLULAVAL; FLUARIX; AFLURIA QUADRIVALENT; 6MO+), 0.5 ML (IIV4) 06/04/2019 Social History Tobacco Use Types Packs/Day Years Used Date Smoking Tobacco: Never Smokeless Tobacco: Never Tobacco Cessation:Counseling Given: Not Answered Alcohol Use Standard Drinks/Week Comments Never 0 (1 standard drink = 0.6 oz pur e alcohol) Comments No Sex and Gender Information Value Date Recorded Sex Assigned at Not on file Legal Sex Female 6:29 AM 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 Gender Identity Not on file Sexual Orientation Not on file Occupation Industry Job Start Date Job End Date teacher Not on file Not on file Not on file Last Filed Vital Signs Vital Sign Reading Time Taken Comments Blood Pressure 129/83 08/31/2022 11:03 AM [employer]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 Pulse 91 08/31/2022 11:03 AM [employer]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 Temperature 36.8 C (98.2 F) 08/31/2022 11:03 AM [employer]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 Respiratory Rate 16 09/23/2019 2:16 PM [employer]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 Oxygen Saturation 98% 09/23/2019 2:16 PM [employer]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 Inhaled Oxygen Concentration - - Weight 95.3 kg (210 lb) 12/06/2024 12:37 PM CDT Height 177.8 cm (5' 10) 12/06/2024 12:37 PM CDT Body Mass Index 30.13 12/06/2024 12:37 PM CDT Plan of Treatment Health Maintenance Due Date Last Done Comments COLOGUARD (AGES 45-75) - COL ON CA SCREENING 1975 COLON MONITORING 1974 COLONOSCOPY - COLON CA SCREENING 1974 CT COLONOGRAPHY - COLON CA SCREENING 1975 Colorectal Cancer Screening 1974 FIT - COLON CA SCREENING 1974 FLEX SIG - COLON CA SCREENING 1974 HIV SCREENING 1989 HEPATITIS C SCREENING 08/19/1992 DTAP/TDAP/TD VACCINES (1 - Tdap) 1993 HEPATITIS B VACCINE (1 of 3 - 19+ 3-dose series) 1993 PAP with HPV 2004 SCREENING FOR DIABETES 02/19/2022 DEPRESSION SCREENING 08/22/2024 PNEUMOCOCCAL VACCINE 50+ (1 of 1 - PCV) 2024 ZOSTER VACCINE (1 of 2) 2024 COVID-19 VACCINE (1 - 2023-2 5 season) 2025 INFLUENZA VACCINE (#1) 2025 06/04/2019 MAMMOGRAM 12/06/2026 12/06/2024, 11/14/2023, 08/31/2022 HIB VACCINE Aged Out No longer eligi ble based on patient's age to complete this topic HPV VACCINE Aged Out No longer eligi ble based on patient's age to complete this topic MENINGOCOCCAL (Group B) VACCINE SHARED DECISION-MAKING Aged Out No longer eligible based on patient's age to complete this topic MENINGOCOCCAL GROUPS A/C/Y/W VACCINE Aged Out No longer eligible b ased on patient's age to complete this topic Procedures Procedure Name Priority Date/Time Associated Diagnosis Comments MAMMO BILAT SCREENING W GULSHAN Routine 12/06/2024 12:37 PM CDT Encounter for screening mammogram for malignant neoplasm of breast from Last 3 Months or Most Recently Relevant to Health Maintenance Results * Mammo Bilat Screening W Gulshan (12/06/2024 12:37 PM CDT) Anatomical Region Laterality Modality Breast Bilateral Mammography 12/06/2024 12:4 7 PM CDT Impressions 12/06/2024 12:52 PM CDT IMPRESSION: No mammographic evidence of malignancy in either breast. ASSESSMENT: BIRADS Category 2: Benign finding(s). RECOMMENDATION: Bilateral screening mammogram in one year. Thank you for allowing us to participate in the care of your patient. [facility] utilizes [employer] as a reminder system to notify patients of their next recommended mammogram. > Interpreting Provider: Sophia Louis MD on 12/06/2024 12:52 PM Narrative 12/06/2024 12:52 PM CDT EXAMINATION: Digital screening mammogram. Low-dose full-field digital breast tomosynthesis examination was performed with synthetic 2D images. Computer assisted detection was utilized. DATE: 12/06/2024 12:38 PM PRIOR: 11/14/2023 and prior mammograms dating back to 2019. BREAST PARENCHYMAL DENSITY: There are scattered areas of fibroglandular density. FINDINGS: No suspicious masses, areas of architectural distortion or microcalcifications are evident on synthetic 2D mammogram or tomosynthesis images. There has been no significant interval change since the prior examination. Left breast biopsy clip. Israel Mcmanus MD MAMMO ORDERABLES Final Result from Last 3 Months or Most Recently Relevant to Health Maintenance Insurance [facility] Address: [facility] [id number] [place] [address] [facility] Care Teams Motivational Speaker Relationship Specialty Start Date End Date Jag Meyer MD [address] [place] [id number] PCP - General Internal Medicine 08/31/22
--- NOTE | 2025-05-20 20:01 | WPDHOMESLEEP ---
Sleep Study - Home Unattended Date of Study: 05/13/25 Ordering Provider: Jag Meyer MD Interpreting Provider: Breonna Goldberg MD Home Sleep Study Type: Watch PAT Height: 1.78 m Weight: 92.533 kg Body Mass Index: 29.2 Neck Circumference (inches): 14.75 [place]: 8 Reason for Sleep Study Fatigue, non restorative sleep, snoring Sleep History Jacquie Simpson is a 49-year-old female with diabetes mellitus type 2, hyperlipidemia and venous insufficiency. She discussed symptoms of sleep apnea in her routine office visit. She voices concerns regarding fatigue, non restorative sleep and snoring. She wakes low morning headache and a dry mouth. She wakes at night twice to use the bathroom. She has not had a prior sleep test. She does not have hypertension or heart disease. She has no problems falling asleep however has difficulty remaining asleep during the night and difficulty returning to sleep after she wakes. She has a history of using sedatives to get to sleep. She has daytime sleepiness and does not feel refreshed in the morning. She denies drowsy driving. She does not clench or grind her teeth at night, she does not kick her legs or have uncomfortable feelings in her legs at night. She does not have muscle weakness with strong emotion, feeling a paralysis on falling asleep or on waking nor does she have vivid dreamlike scenes upon falling asleep or waking. Normal bedtime is 8:30 p.m. falling asleep within 30 minutes, spending 9 hours in bed and 9 hours of sleep. On days off, bedtime is 9:00 p.m., falling asleep within 30 minutes, spending 9 hours in bed and 9 hours of sleep. She feels slightly restored on days off. She does not take planned naps. Habits: Tobacco : none Caffeine : 1-2 cups daily Alcohol : none Recreational substances : none PMFSH Past Medical History Medical History Constipation BMI 28.0-28.9,adult BMI 31.0-31.9,adult Venous insufficiency Encounter for routine adult health examination without abnormal findings Encounter for preventive health examination BMI 30.0-30.9,adult Colon cancer screening Encounter to establish care BMI 32.0-32.9,adult Rectocele Other specified irregular menstruation Midline cystocele Fatigue Vaginal delivery x4 HLD (hyperlipidemia) Surgical History Surgical History History of breast biopsy Family History Family History Grandparent Cerebrovascular accident Acute myocardial infarction Family history of coronary artery disease Diabetes mellitus Father Hypertension Family history of elevated blood lipids Patient's father is in good health Mother Hypertension Patient's mother is in good health Social History Social History Social History: Patient drinks 2 cups of caffeine daily. Smoking status: Never smoker Second hand tobacco smoke exposure: No Alcohol intake: never Substance use: never Substance use type: does not use Current Housing: Decline to Answer Concerned About Future Housing: Decline to Answer Difficulty Paying Gas/Electric Bills: Decline to Answer Difficulty Paying for Meds: Decline to Answer Currently Unemployed: Decline to Answer Education: Decline to Answer Living arrangements: with family Additional living arrangements comments: Occupation/Education: unemployed Gender identity (if verbalized by the patient): Female Sexual Orientation (if Verbalized by the Patient): Straight or Heterosexual Medications Home Medications ?Medication ?Instructions ?Recorded ?Confirmed ?Type cholecalciferol (vitamin D3) 50 50 mcg PO DAILY 12/02/23 06/06/25 History mcg (2,000 unit) capsule ascorbic acid (vitamin C) 500 mg 50 mg PO DAILY 04/18/24 06/06/25 History capsule Super Beets 2 gummy BYMOUTH DAILY 12/06/24 06/06/25 History Calcium 600 Vit D 20mcg 1 tablet BYMOUTH DAILY 04/25/25 06/06/25 History atorvastatin 80 mg tablet See Rx Instructions .Route 04/25/25 06/06/25 Rx .COMPLEX #90 tabs dapagliflozin propaned 10 See Rx Instructions .Route 04/25/25 06/06/25 Rx mg-metformin ER 500 mg tablet, ext .COMPLEX #90 tabs rel 24hr (Xigduo XR) ezetimibe 10 mg tablet 5 mg .Route DAILY 04/25/25 06/06/25 History semaglutide 14 mg tablet (Rybelsus) See Rx Instructions .Route 04/25/25 06/06/25 Rx .COMPLEX #90 tabs prednisone 10 mg tablet 10 mg PO BID 10 days #20 tabs 06/06/25 06/06/25 Rx Sleep Procedure The sleep study was completed using WatchPAT a technically adequate device with seven channels: peripheral arterial tone, actigraphy, body position, snore, respiratory movement, pulse oximetry, sleep staging, and heart rate. Prior to using the device, the patient received verbal and written instructions for its application and was provided with the help desk phone number for additional telephonic instruction with 24-hour availability of qualified personnel to answer questions. Sleep Architecture The total recording time is 8 hrs, 31 min. The total sleep time is 7 hrs, 18 min. Sleep latency is 19 minutes. REM latency is 74 minutes. The patient had 11 episodes of waking. Sleep architecture shows 14.3% deep sleep, 65.1% light sleep, and 20.6% stage REM. The patient spent 13.9% of total sleep time in the supine position. Sleep efficiency was 85.7%. Respiratory Analysis The overall AHI (pAHI 3%:) is 12.0. The central AHI is 0.4. The AHI using 4% criteria is 6.1. The AHI was 8.6 in NREM and 24.6 in REM sleep. The AHI was 19.2 in Supine and 10.8 in Non-supine sleep. Percent of Chirag Saba respirations is 0%. Oximetry Data The oxygen desaturation index (AMAURI 4%:) is 3.9. The mean saturation is 93%, and the lowest saturation is 89%. Time spent with saturation < 88% is 0.0 minutes. Snoring Profile Snoring average intensity is 43 dB. The patient snored above 45 decibels for 106.3 minutes, 24.3% of sleep time. Cardiac Profile The average pulse rate is 64 beats per minutes. The lowest pulse rate is 48 bpm. The highest pulse rate 102 is bpm. Cardiac rhythm analysis in sleep does not show atrial fibrillation. Assessment and Plan Assessment and Plan (1) Obstructive sleep apnea: Code(s): G47.33 - Obstructive sleep apnea (adult) (pediatric) Status: Acute Assessment and Plan: This home sleep test using WatchPat on 05/13/2025 shows mild obstructive sleep apnea, the apnea-hypopnea index is 12 using 3% criteria and the AHI is 6.1 using 4% criteria. The lowest saturation is 89%, and snoring is loud. Events were worse in the supine position with a supine AHI of 19.2. She has a co-morbidity of excessive daytime sleepiness. This co-morbidity allows her to proceed with treatment with mild obstructive sleep apnea. I recommend that this patient be prescribed Resmed AirSense 11 AutoPAP 5-15 cm H2O, CPAP mask/filters/tubing and humidifier chamber. This should be used with all episodes of sleep. Compliance should be reviewed within 31-90 days of starting therapy for usage greater than 4 hours per night greater than 70% of the nights. The patient should be asked about symptoms such as excessive daytime sleepiness, quality of sleep, decreased nocturia, increased mental functioning such as memory, mood, and concentration. If she does not benefit using autoPAP, consider in-lab titration with a sleep aid available, if needed, and no naps on the day of the CPAP titration. If she fails PAP therapy, consider an oral appliance which can be fitted by a sleep dentist. Data The data obtained during this sleep study is adequate for interpretation. Certification This sleep study has been reviewed by a board certified sleep medicine physician.
[2025-05-20 20:03] VITALS: BMI 29.2
== END 2025-05-14 09:08 | disposition home or self-care (01) ==
LOC: ANHCSM 07:59
PROVIDERS: PCP Internal Medicine; Visit Provider Internal Medicine
DX: G47.10 Hypersomnia, unspecified (principal)
CPT/HCPCS: 95800

== ENCOUNTER 2025-05-27 12:30 | Outpatient (CLI) | payer OTHER, BC, SELFPAY ==
--- NOTE | ~2025-05-27 | XR_ITS ---
EXAMINATION: XR knee RT min 4V, 05/27/2025 12:36 CDT HISTORY: Effusion, right knee pain x 1 week, no surg, no inj COMPARISON: No comparisons available. Findings: No acute fracture or malalignment. Moderate tricompartmental degenerative changes, small effusion Soft tissues unremarkable. Impression: No acute fracture or malalignment. Reviewed, dictated and finalized at location P. Impression: No acute fracture or malalignment.
== END 2025-05-27 12:31 | disposition home or self-care (01) ==
PROVIDERS: PCP Internal Medicine; Visit Provider Internal Medicine
DX: M25.461 Effusion, right knee (principal); M25.561 Pain in right knee
CPT/HCPCS: 73564

== ENCOUNTER 2025-05-29 12:01 | Outpatient (CLI) | payer OTHER, BC, SELFPAY ==
--- NOTE | ~2025-05-29 | US_ITS ---
Clinical history:Increased right knee swelling for one and half weeks. EXAM:Ultrasound soft tissue extremity right TECHNIQUE:Multiple static grayscale images and color Doppler images were obtained of an area of concern about the right knee. Comparisons:Right knee x-ray 05/27/2025 FINDINGS: There is a 4.7 x 2.4 cm mildly complicated anechoic structure superior to the right knee possibly a suprapatellar effusion. IMPRESSION: 1.There is a 4.7 x 2.4 cm mildly complicated anechoic structure superior to the right knee possibly a suprapatellar effusion. Other etiologies are possible but less likely. If symptoms persist or worsen, consider a short-term follow-up study or MRI imaging for further assessment. Reviewed, dictated and finalized at location Q. IMPRESSION: 1.There is a 4.7 x 2.4 cm mildly complicated anechoic structure superior to the right knee possibly a suprapatellar effusion. Other etiologies are possible bu t less likely. If symptoms persist or worsen, consider a short-term follow-up study or MRI johann ging for further assessment.
--- NOTE | ~2025-05-29 | US_ITS ---
EXAMINATION: US venous doppler LE RT, 05/29/2025 12:30 CDT HISTORY: M25.561 - Pain in right knee Comparison: None Technique: Emmanuel-scale and color Doppler images were attempted of the lower saphenofemoral junction, common femoral vein,superficial femoral vein, proximal deep femoral vein, proximal deep femoral vein, popliteal vein and posterior tibial veins. Findings: Deep Venous System:Normal flow, augmentation and compressibility. No echogenic thrombus identified. The contralateral saphenofemoral junction appears unremarkable. Superficial Venous SystemNo superficial thrombophlebitis. Soft tissues: Soft tissues are unremarkable. Impression: Negative for DVT. Reviewed, dictated and finalized at location P. Impression: Negative for DVT.
== END 2025-05-29 12:02 | disposition home or self-care (01) ==
PROVIDERS: PCP Internal Medicine; Visit Provider Internal Medicine
DX: M71.21 Synovial cyst of popliteal space [Baker], right knee (principal)
CPT/HCPCS: 76882; 93971